=== PATIENT | female | born 2005 | race Caucasian/White ===

== ENCOUNTER 2024-01-06 22:26 | Emergency (ER) | payer SELFPAY ==
[~2024-01-06] VITALS: Ht 172.7 cm; Wt 75.5 kg
[2024-01-06 22:33] VITALS: TEMP 98.2
[2024-01-06] MEDS ORDERED: NS 1,000 ML IV ONE (23:00)
[2024-01-06] MEDS ORDERED: Ondansetron 4 MG/2 ML VIAL IV ONE (23:00)
[2024-01-06] MEDS ORDERED: Mag/Al Hydrox/Simeth Susp 30 ML CUP PO ONE (23:00)
[2024-01-06 23:03] LABS: BASO % 0.6 % (0.0-2.0); EOS # 0.1 K/mm3 (0.0-0.7); GRAN # 4.2 K/mm3 (1.4-6.5); GRAN % 67.5 % (42.2-75.2); HEMATOCRIT 42.7 % (35.0-45.0); HEMOGLOBIN 14.1 g/dl (12.0-15.0); LYMPH # 1.5 K/mm3 (1.2-3.4); MEAN CELL VOLUME 84 fl (80.0-95.0); MEAN CORPUSCULAR HEMOGLOBIN 28 pg (26-32); MEAN CORPUSCULAR HGB CONC 33 g/dl (33.0-37.0); MEAN PLATELET VOLUME 10.5 fl (7.4-10.4); MONO # 0.4 K/mm3 (0.1-0.6); MONO % 5.7 % (1.7-9.3); PLATELET COUNT 275 K/mm3 (130-400); RED BLOOD COUNT 5.07 M/mm3 (4.10-5.30); REDCELL DISTRIBUTION WIDTH-CV 12.7 % (11.5-14.5)
[2024-01-06 23:22] LABS: ALBUMIN 4.8 g/dL (3.5-5.0); BILIRUBIN,TOTAL 0.7 mg/dL (0.2-1.2); C-REACTIVE PROTEIN 0.05 mg/dL (0.00-0.50); CALCIUM 9.7 mg/dL (8.4-10.2); CREATININE, serum 0.83 mg/dL (0.57-1.11); POTASSIUM 3.8 mEq/L (3.5-4.5); TOTAL PROTEIN 7.4 g/dl (6.2-8.1)
[2024-01-06] MEDS ORDERED: Home Promethazine 25 MG #2 TAB/PACK PO ONE (23:45)
[2024-01-06] MEDS ORDERED: ZOFRAN ODT4 MG PO (23:49)
[2024-01-06 23:59] VITALS: BP 127/70; PULSE 78
== END 2024-01-07 00:08 | disposition home or self-care (01) ==
LOC: COL.ER 22:26
PROVIDERS: Emergency Medicine
DX: K29.70 Gastritis, unspecified, without bleeding (principal); K25.9 Gastric ulcer, unspecified as acute or chronic, without hemorrhage or perforation; F17.290 Nicotine dependence, other tobacco product, uncomplicated
CPT/HCPCS: J2405; J7030

== ENCOUNTER 2024-03-11 10:09 | Day surgery (SDC) | payer MEDICAID ==
[~2024-03-11] VITALS: Ht 172.7 cm; Wt 69.5 kg
[~2024-03-11 10:09] MED LIST: Famotidine 20 MG TAB PO SCH; LR 1,000 ML IV SCH; Meclizine 25 MG TAB PO SCH; ZOFRAN ODT4 MG PO
[2024-03-11] MEDS ORDERED: DEXILANT60 MG PO (11:34)
[2024-03-11 11:42] VITALS: BP 122/59; PULSE 64; TEMP 97.6
[2024-03-11] MEDS ORDERED: NS 10 ML IV ONE (12:13)
[2024-03-11] MEDS ORDERED: fentaNYL 50 MCG/ML 2 ML VIAL ONE ×2 (12:13→13:40)
[2024-03-11] MEDS ORDERED: Ondansetron 4 MG/2 ML VIAL ONE (12:13)
[2024-03-11] MEDS ORDERED: Ketorolac 30 MG/ML VIAL ONE (12:13)
[2024-03-11] MEDS ORDERED: dexAMETHasone 10 MG/ML VIAL ONE (12:13)
[2024-03-11] MEDS ORDERED: Rocuronium 50 MG/5 ML Multi-Dose VIAL ONE (12:13)
[2024-03-11] MEDS ORDERED: hydrALAZINE 20 MG/ML 1 ML VIAL IV PRN (12:15)
[2024-03-11] MEDS ORDERED: HYDROmorphone 1 MG/1 ML SYRINGE [PACU/SDC ONLY] IV PRN (12:15)
[2024-03-11] MEDS ORDERED: droPERidol 2.5 MG/ML 2 ML VIAL IV PRN (12:15)
[2024-03-11] MEDS ORDERED: Meperidine 50 MG/ML 1 ML VIAL IV PRN (12:15)
[2024-03-11] MEDS ORDERED: Ondansetron 4 MG/2 ML VIAL IV PRN ×2 (12:15→14:30)
[2024-03-11] MEDS ORDERED: fentaNYL 50 MCG/ML 1 ML SYRINGE/VIAL [PACU/SDC ONLY] IV PRN ×2 (12:15)
[2024-03-11] MEDS ORDERED: NORCO 325 MG-51 TAB PO (12:50)
[2024-03-11] MEDS ORDERED: Topical Skin Adhesive 1 EACH (1 ML) TOP ONE (13:08)
[2024-03-11] MEDS ORDERED: Glycopyrrolate 0.2 MG/ML 1 ML VIAL ONE ×2 (13:20)
[2024-03-11] MEDS ORDERED: Morphine 4 MG/ML VIAL IV PRN (14:30)
[2024-03-11] MEDS ORDERED: Acetaminophen 325 MG TAB PO PRN (14:30)
[2024-03-11 14:55] VITALS: BP 127/62; PULSE 84; TEMP 97.4
[2024-03-11 15:10] VITALS: BP 132/62; PULSE 78
[2024-03-11 15:25] VITALS: BP 123/65; PULSE 78
[2024-03-11 15:35] VITALS: BP 119/63; PULSE 68
[2024-03-11 15:40] VITALS: BP 127/62; PULSE 84; TEMP 97.4
--- NOTE | 2024-03-11 15:55 | NUR ---
1455 RETURNS TO ROOM 7 PER CART WITH HOB ELEVATED 40 DEGREES. AWAKE, ALERT. RESP UNLABORED. VITAL SIGNS OBTAINED. ABD SOFT. INCISIONS X 4 SITES INTACT. BANDAID X 1 SITE. NO DRAINAGE OBSERVED. REPORTS MILD ABD "GAS" PAIN. CALL LIGHT AT SIDE. FAMILY IN ROOM 1510 PATIENT DOZING 1525 AWAKE, ALERT. HOB ELEVATED 75 DEGREES. TOLERATES PO WATER AND JELLO WITHOUT NAUSEA 1527 PATIENT REFERENCES SIGNIFICANT DISTANCE IN CAR RIDE HOME. PO PAIN PILL (NORCO 5 MG) GIVEN PER REQUEST 1535 DISCHARGE INSTRUCTIONS REVIEWED. PATIENT VERBALIZES UNDERSTANDING. COPY PROVIDED IN DISCHARGE FOLDER 1547 SITS ON EDGE OF CART. DRESSES SELF
== END 2024-03-11 15:55 | disposition home or self-care (01) ==
LOC: SDCO 10:09
DX: K82.8 Other specified diseases of gallbladder (principal); F17.290 Nicotine dependence, other tobacco product, uncomplicated
CPT/HCPCS: J0690; J1100; J1885; J2405; J2704; J3010; J7120